=== PATIENT | female | born 1995 | race American Indian/Alaskan Native ===

== ENCOUNTER 2022-04-09 10:22 | Emergency (ER) | payer SELFPAY ==
[2022-04-09 10:47] VITALS: BP 118/68
--- NOTE | 2022-04-09 10:48 | Emergency Department Report ---
ED Extremity Problem HPI - General Stated complaint: RT KNEE PAIN - History of Present Illness Initial comments: 26-year-old black female with no past medical history and a past surgical history of gastric bypass presents to the emergency department for evaluation of 1 week history of right knee pain. She denies injury or trauma, but states that she has had increasing pain to her right knee over the past week. She states that pain is worse when she turns a certain direction. She denies fever, swelling, drainage, redness to the right knee area. States that she has not taken any medications at home for pain. MD Complaint: extremity pain -: Gradual, week(s) (1) Location: right, knee History of Same: No -: No myalgia, No arthralgia, No fever, No associated dyspnea, No associated chest pain Radiation: none Severity scale (0 -10): 8 Quality: aching Consistency: intermittent Worsens with: other (Certain positions) Associated Symptoms: denies: chest pain, shortness of breath, fever, myalgias, a rthralgias, rash - Related Data Previous Rx's Medication Instructions Recorded Last Taken Type methylPREDNISolone [Medrol 4MG 4 mg PO DAILY #1 pack 04/09/22 Unknown Rx DOSEPAK (21 tabs)] ED Review of Systems ROS: Stated complaint: RT KNEE PAIN Other details as noted in HPI Comment: All other systems reviewed and negative Constitutional: denies: chills, fever Eyes: denies: eye pain, vision change ENT: denies: congestion Respiratory: denies: shortness of breath Cardiovascular: denies: chest pain, palpitations Gastrointestinal: denies: abdominal pain, nausea, vomiting Genitourinary: denies: urgency, dysuria Musculoskeletal: denies: back pain Skin: denies: rash, lesions Neurological: denies: headache, weakness ED Past Medical Hx - Medications Home Medications: Home Medications Medication Instructions Recorded Confirmed Last Taken Type methylPREDNISolone [Medrol 4MG 4 mg PO DAILY #1 pack 04/09/22 Unknown Rx DOSEPAK (21 tabs)] ED Physical Exam - General General appearance: alert, in no apparent distress - Head Head exam: Present: atraumatic, normocephalic - Eye Eye exam: Present: normal appearance. Absent: scleral icterus, conjunctival injection, periorbital swelling, periorbital tenderness - Neck Neck exam: Present: normal inspection - Respiratory Respiratory exam: Absent: respiratory distress - Cardiovascular Cardiovascular Exam: Present: regular rate - GI/Abdominal GI/Abdominal exam: Absent: distended, tenderness - Expanded Lower Extremity Exam Right Knee exam: Present: full ROM, tenderness. Absent: swelling, abrasion, laceration, ecchymosis, deformity, crepidus, dislocation, erythema, effusion Lower Leg exam: Present: normal inspection Ankle exam: Present: normal inspection Foot/Toe exam: Present: normal inspection Neuro vascular tendon exam: Present: no vascular compromise. Absent: pulse deficit, abnormal cap refill, motor deficit, sensory deficit, extremity cold to touch, pallor Gait: Positive: observed and normal - Back Exam Back exam: Present: normal inspection - Neurological Exam Neurological exam: Present: alert, oriented X3 - Psychiatric Psychiatric exam: Present: normal affect, normal mood - Skin Skin exam: Present: warm, dry, intact, normal color ED Course Vital Signs 04/09/22 10:44 Temperature 98.9 F Pulse Rate 71 Respiratory 14 Rate Blood Pressure 118/68 O2 Sat by Pulse 100 Oximetry ED Medical Decision Making - Medical Decision Making 26-year-old black female with no past medical history and a past surgical history of gastric bypass presents to the emergency department for evaluation of 1 week history of right knee pain. She denies injury or trauma, but states that she has had increasing pain to her right knee over the past week. She states that pain is worse when she turns a certain direction. She denies fever, swel ling, drainage, redness to the right knee area. States that she has not taken any medications at home for pain Physical exam unremarkable. Patient denies injury or trauma. Patient will be given Medrol Dosepak and advised to follow-up with orthopedics if no improvement or worsening symptoms. She is advised to return to the emergency department as needed. She verbalizes understanding of and agreement with plan of care. Critical care attestation.: If time is entered above; I have spent that time in minutes in the direct care of this critically ill patient, excluding procedure time. ED Disposition Clinical Impression: Right knee pain Qualifiers: Chronicity: acute Qualified Code(s): M25.561 - Pain in right knee Disposition: HOME / SELF CARE / HOMELESS Is pt being admited?: No Does the pt Need Aspirin: No Condition: Stable Instructions: Acute Knee Pain, Adult, Musculoskeletal Pain Additional Instructions: Take medications as prescribed. Follow-up with orthopedics if no improvement or worsening symptoms. Return to the emergency department as needed. Prescriptions: methylPREDNISolone [Medrol 4MG DOSEPAK (21 tabs)] 4 mg PO DAILY #1 pack Referrals: BRIE GR MD [Staff Physician] - 3-5 Days Forms: Work/School Release Form(ED) Time of Disposition: 10:48
== END 2022-04-09 12:07 | disposition home or self-care (01) ==
LOC: ED 10:22
DX: M25.561 Pain in right knee (principal); Z79.899 Other long term (current) drug therapy
CPT/HCPCS: 99282